=== PATIENT | female | born 1980 | race African-American/Black ===

== ENCOUNTER 2020-05-04 14:49 | Emergency (ER) | payer MEDICAID ==
[~2020-05-04] VITALS: Ht 172.7 cm; Wt 90.0 kg
[~2020-05-04 14:49] MED LIST: CYCL10TA2 PO; HYDR25TA PO; NAPR500T8 PO; ONDA8TAB12 PO
[2020-05-04 15:12] VITALS: BP 125/88
[2020-05-04 15:29] LABS: BILIRUBIN,URINE NEGATIVE (NEG); CLARITY,URINE TURBID; COLOR,URINE YELLOW; NITRITE,URINE NEGATIVE (NEG); PH,URINE 6.5 (<5.0-8.0); PROTEIN,URINE NEGATIVE (NEG-TRACE)
[2020-05-04 15:35] LABS: BACTERIA,URINE MANY /HPF (0-FEW); RBC,URINE 0 /HPF (0-2); SQUAMOUS EPITHELIAL CELL,UR MOD /LPF
[2020-05-04] MEDS ORDERED: cefTRIAXone IM 250 MG VIAL IM ONE (16:15)
[2020-05-04] MEDS ORDERED: AZITHROMYCIN 250 MG TABLET. PO ONE (16:15)
--- NOTE | 2020-05-04 16:28 | PHYS DOC ---
Past Medical History Past Medical History: Anxiety, Bipolar Additional Past Medical Histor: SEASONAL ALLERGIES Past Surgical History: Tubal ligation Smoking Status: Current Every Day Smoker Alcohol Use: Occasionally Drug Use: None General Adult EDM: Chief Complaint: PELVIC PAIN HPI: HPI: Patient is a 39 year old AA female who presents to the emergency department with complaints of excessive vaginal wetness for the last 3 days. She states the symptoms started after she had oral intercourse with a new partner 4 days ago. She reports that the man penetrated her vagina and anus with his tongue, she also reports vaginal intercourse. Patient states that the new partner was wearing a condom during intercourse. She denies any vaginal itching, odor, or abnormal discharge. She denies any fever, cough, abdominal pain, nausea, vomiting, diarrhea, or pelvic pain. She reports concerns of a possible sexually transmitted infection and requests to be treated for a possible STI. She currently denies any pain. Review of Systems: Review of Systems: Constitutional: Denies fever or chills. [] HENT: Denies nasal congestion or sore throat. [] Respiratory: Denies cough or shortness of breath. [] GI: Denies abdominal pain, nausea, vomiting, or diarrhea. [] : Denies dysuria; see HPI. [] Musculoskeletal: Denies back pain or joint pain. [] Integument: Denies rash. [] Neurologic: Denies headache Lymphatic: Denies swollen glands. [] Psychiatric: Denies depression or anxiety. [] Heart Score: Risk Factors: Risk Factors: DM, Current or recent (<one month) smoker, HTN, HLP, family history of CAD, obesity. Risk Scores: Score 0 - 3: 2.5% MACE over next 6 weeks - Discharge Home Score 4 - 6: 20.3% MACE over next 6 weeks - Admit for Clinical Observation Score 7 - 10: 72.7% MACE over next 6 weeks - Early Invasive Strategies Allergies: Allergies: Allergies Coded Allergies Type Severity Reaction Last Updated Verified iodine Allergy Intermediate 02/19/14 Yes Physical Exam: PE: Constitutional: Well developed, well nourished, no acute distress, non-toxic appearance. HENT: Normocephalic, atraumatic, bilateral external ears normal, nose normal. Eyes: PERRLA, EOMI, conjunctiva normal, no discharge. Neck: Normal range of motion, no stridor. Cardiovascular: Heart rate regular rhythm Lungs & Thorax: Respirations even and unlabored, no retractions, no respiratory distress Pelvic Exam: Apron Worker present Eufemia KENNEDY Abdomen: Nontender, soft External Genitalia: Normal Skin Speculum: Normal vaginal mucosa, normal cervical discharge, cervix is f riable, Bimanual: No adnexal masses or tenderness, No CMT Skin: Warm, dry, no erythema, no rash. Extremities: No cyanosis, ROM intact, no edema. Neurologic: Alert and oriented X 3, no focal deficits noted. Psychologic: Affect normal, judgement normal, mood normal. Current Patient Data: Labs: Laboratory Tests Test 05/04/20 14:55 05/04/20 15:00 Urine Collection Type Unknown Urine Color Yellow Urine Clarity Turbid Urine pH 6.5 (<5.0-8.0) Urine Specific [place] 1.025 (1.000-1.030) Urine Protein Negative mg/dL (NEG-TRACE) Urine Glucose (UA) Negative mg/dL (NEG) Urine Ketones (Stick) Negative mg/dL (NEG) Urine Blood Negative (NEG) Urine Nitrite Negative (NEG) Urine Bilirubin Negative (NEG) Urine Urobilinogen Dipstick 1.0 mg/dL (0.2 mg/dL) Urine Leukocyte Esterase Negative (NEG) Urine RBC 0 /HPF (0-2) Urine WBC 1-4 /HPF (0-4) Urine Squamous Epithelial Cells Mod /LPF Urine Bacteria Many /HPF (0-FEW) Urine Mucus Mod /LPF POC Urine HCG, Qualitative Hcg negative (Negative) Microbiology 05/04/20 Wet Prep - Final, Complete Vital Signs: Vital Signs Date Time Temp Pulse Resp B/P (MAP) Pulse Ox O2 Delivery O2 Flow Rate FiO2 05/04/20 15:12 98.3 93 16 125/88 (100) 100 Room Air 98.3 EKG: EKG: [] Radiology/Procedures: Radiology/Procedures: [] Course & Med Decision Making: Course & Med Decision Making Pertinent Labs and Imaging studies reviewed. (See chart for details) 39-year-old female presents to the emergency department with concerns of a sexually transmitted infection and excessive vaginal wetness. Pelvic exam revealed no abnormalities of the external or internal genitalia. However the patient required requested to be treated for suspected gonorrhea or chlamydia. Patient was treated prophylactically with 250 mg of IM Rocephin, and 1 g of PO Zithromax. Patient was instructed to avoid having intercourse until the results of gonorrhea and chlamydia testing are available, patient was notified that these results would not be available for 48 hours. If one or both of these tests is positive, patient needs to refrain from intercourse for approximately 1 week following the treatment of any current partners. Patient verbalized an understanding of home care, medications, follow-up, and return to ED instructions and was in agreement with the plan of care. [] Dragon Disclaimer: Dragon Disclaimer: This electronic medical record was generated, in whole or in part, using a voice recognition dictation system. Departure Departure Impression: Primary Impression: Contact with and (suspected) exposure to infections with a predominantly sexual mode of transmission Disposition: HOME, SELF-CARE Condition: STABLE Referrals: JEN ADDISON (PCP) Patient Instructions: Sexually Transmitted Disease, [id number] Additional Instructions: Recommend that you go to your local health department for comprehensive sexually transmitted disease testing. You have been treated for a suspected gonorrhea and chlamydia. Avoid having intercourse until the results of gonorrhea and chlamydia testing are available, these results will not be available for 48 hours. If one or both of these tests is positive, you need to refrain from intercourse for approximately 1 week following the treatment of any current partners. Follow-up with your primary care doctor if symptoms persist, return to ER symptoms worsen. Justicifation of Admission Dx: Justifications for Admission: Justification of Admission Dx: N/A JERAD RAMON APRN May 04, 2020 16:28
[2020-05-06 19:10] LABS: GC PROBE Negative (Negative)
== END 2020-05-04 16:49 | disposition home or self-care (01) ==
LOC: ER 14:49
DX: N89.8 Other specified noninflammatory disorders of vagina (principal); F41.9 Anxiety disorder, unspecified; F31.9 Bipolar disorder, unspecified; F17.200 Nicotine dependence, unspecified, uncomplicated; Z98.51 Tubal ligation status; Z20.2 Contact with and (suspected) exposure to infections with a predominantly sexual mode of transmission; Z91.040 Latex allergy status
CPT/HCPCS: 81001; 81025; 87086; 87491; 87591; 96372; 99284; J0696; Q0111

== ENCOUNTER 2020-07-08 18:37 | Emergency (ER) | payer MEDICAID ==
[~2020-07-08] VITALS: Ht 170.2 cm; Wt 85.9 kg
[2020-07-08 19:21] LABS: BILIRUBIN,URINE NEGATIVE (NEG); CLARITY,URINE CLEAR; COLOR,URINE YELLOW; NITRITE,URINE NEGATIVE (NEG); PH,URINE 6.5 (<5.0-8.0); PROTEIN,URINE NEGATIVE (NEG-TRACE); UROBILINOGEN,URINE 0.2 mg/dL (0.2 mg/dL)
--- NOTE | 2020-07-08 19:23 | PHYS DOC ---
Past Medical History Past Medical History: Anxiety, Bipolar Additional Past Medical Histor: SEASONAL ALLERGIES (DUSTIN LINCOLN APRN) Past Surgical History: Tubal ligation (DUSTIN LINCOLN APRN) Smoking Status: Current Every Day Smoker Alcohol Use: Occasionally Drug Use: None (DUSTIN LINCOLN APRN) General Adult EDM: Chief Complaint: VAGINAL BLEEDING HPI: HPI: Patient is a 39 year old Female who presents with 2 weeks of urinary frequency and irritation at her urethral area. She states that she also started her period 2 weeks early. She states that she is a lesbian and they only use Dildos. She states that she is not sure if they are cleaned regularly. She states that she does not think that she has any sexually transmitted diseases but would be checked for them today. Patient denies abdominal pain, nausea, vomiting, diarrhea, burning with urination, back pain, fever, headache, dizziness, vaginal discharge, chest pain, shortness of breath. She has a history of smoking, bipolar, allergies, anxiety. (DUSTIN LINCOLN APRN) Review of Systems: Review of Systems: Constitutional: Denies fever or chills. [] Eyes: Denies change in visual acuity. [] HENT: Denies nasal congestion or sore throat. [] Respiratory: Denies cough or shortness of breath. [] Cardiovascular: Denies chest pain or edema. [] GI: Denies abdominal pain, nausea, vomiting, bloody stools or diarrhea. [] : Denies dysuria. Vaginal irritation and urinary frequency. [] Musculoskeletal: Denies back pain or joint pain. [] Integument: Denies rash. [] Neurologic: Denies headache, focal weakness or sensory changes. [] Endocrine: Denies polyuria or polydipsia. [] Lymphatic: Denies swollen glands. [] Psychiatric: Denies depression or anxiety. [] (DUSTIN LINCOLN APRN) Heart Score: Risk Factors: Risk Factors: DM, Current or recent (<one month) smoker, HTN, HLP, family history of CAD, obesity. Risk Scores: Score 0 - 3: 2.5% MACE over next 6 weeks - Discharge Home Score 4 - 6: 20.3% MACE over next 6 weeks - Admit for Clinical Observation Score 7 - 10: 72.7% MACE over next 6 weeks - Early Invasive Strategies (DUSTIN LINCOLN APRN) Allergies: Allergies: Allergies Coded Allergies Type Severity Reaction Last Updated Verified iodine Allergy Intermediate 02/19/14 Yes (DUSTIN LINCOLN APRN) Physical Exam: PE: Constitutional: Well developed, well nourished, no acute distress, non-toxic appearance. [] HENT: Normocephalic, atraumatic, bilateral external ears normal, oropharynx moist, no oral exudates, nose normal. [] Eyes: PERRLA, EOMI, conjunctiva normal, no discharge. [] Neck: Normal range of motion, no tenderness, supple, no stridor. [] Cardiovascular:Heart rate regular rhythm, no murmur [] Lungs & Thorax: Bilateral breath sounds clear to auscultation [] Abdomen: Bowel sounds normal, soft, no tenderness, no masses, no pulsatile masses. [] Skin: Warm, dry, no erythema, no rash. [] Back: No tenderness, no CVA tenderness. [] Extremities: No tenderness, no cyanosis, no clubbing, ROM intact, no edema. [] Neurologic: Alert and oriented X 3, normal motor function, normal sensory function, no focal deficits noted. [] Psychologic: Affect normal, judgement normal, mood normal. Normal physical exam [] (DUSTIN LINCOLN APRN) Current Patient Data: Labs: Laboratory Tests Test 07/08/20 19:02 POC Urine HCG, Qualitative Hcg negative (Negative) (DUSTIN LINCOLN APRN) EKG: EKG: [] (DUSTIN LINCOLN APRN) Radiology/Procedures: Radiology/Procedures: [] (DUSTIN LINCOLN APRN) Course & Med Decision Making: Course & Med Decision Making Pertinent Labs and Imaging studies reviewed. (See chart for details) See HPI. Alert and oriented x4. Speaks in full complete sentences. Ambulatory to steady gait. Abdomen is soft and nontender. No CVA tenderness. Pelvic Exam: Speech Language Therapist present Abdomen: Nontender External Genitalia: Normal Skin Speculum: Normal vaginal mucosa, bloody cervical discharge Bimanual: No adnexal masses or tenderness, No CMT Patient is educated that the chlamydia and gonorrhea will not come back for 48 hours and then call her only if she is positive. Wet prep shows no acute findings. Due to the amount of blood in the urinalysis is hard to tell if there is infection but there was no leukocytes. I can however treat her symptoms with antibiotic. Because of the sex toy use and she is unaware if it is clean regularly I will go ahead and treat her with miconazole vaginally. [] (DUSTIN LINCOLN APRN) Dragon Disclaimer: Dragon Disclaimer: This electronic medical record was generated, in whole or in part, using a voice recognition dictation system. (DUSTIN LINCOLN APRN) Departure Departure Impression: Primary Impression: Urinary symptom or sign Additional Impression: Vaginal irritation Disposition: 01 DC HOME SELF CARE/HOMELESS Condition: STABLE Referrals: SARI GARCIA MSN, RN, AUTOMATIC ENGRAVER (PCP) Patient Instructions: Urinary Tract Infection, Vaginitis, [id number] Additional Instructions: Follow-up with a clinic office coordinator if needed. Remember that the test will come back in 48 hours and they will call you only if the chlamydia or gonorrhea come back positive. Use medications as prescribed. Scripts Cephalexin (KEFLEX) 500 Mg Capsule 1 CAP PO BID for 7 Days, #14 CAP 0 Refills Prov: DUSTIN LINCOLN APRN 07/08/20 Miconazole Nitrate (MONISTAT 3) 24 Gm Cmb.pf.crm 1 APPFUL VG QHS for 3 Days, #24 GM 0 Refills Prov: DUSTIN LINCOLN APRN 07/08/20 Attending Signature Attending Signature I have reviewed the PA/RN OBGYN's note and plan of care. I was available for consultation as needed during the patient's visit in the emergency department. I agree with the clinical impression, plan, and disposition. (DAVID ALVRAEZ DO) DUSTIN LINCOLN APRN Jul 08, 2020 19:23 DAVID ALVAREZ DO Jul 09, 2020 00:45
[2020-07-08 19:26] LABS: BACTERIA,URINE 0 /HPF (0-FEW); RBC,URINE >40 /HPF (0-2); WBC,URINE OCC /HPF (0-4)
[2020-07-08 19:46] LABS: BASO # 0.1 x10^3/uL (0.0-0.2); BASO % 1 % (0-3); EOS # 0.2 x10^3/uL (0.0-0.7); EOS % 2 % (0-3); HEMATOCRIT 40.5 % (36.0-47.0); LYMPH % 33 % (24-48); MEAN CORPUSCULAR HEMOGLOBIN 35 pg (25-35); MEAN CORPUSCULAR HGB CONC 35 g/dL (31-37); MEAN CORPUSCULAR VOLUME 100 fL (79-100); MONO # 0.8 x10^3/uL (0.0-1.1); MONO % 9 % (0-9); NEUT # 5.1 x10^3/uL (1.8-7.7); NEUT % 56 % (31-73); PLATELET COUNT 176 x10^3/uL (140-400); RED BLOOD COUNT 4.05 x10^6/uL (3.50-5.40); RED CELL DISTRIBUTION WIDTH 13.1 % (11.5-14.5); WHITE BLOOD COUNT 9.2 x10^3/uL (4.0-11.0)
[2020-07-08] MEDS ORDERED: CEPH-264 PO (19:53)
[2020-07-08] MEDS ORDERED: MICO24CM5 VG (19:53)
[2020-07-08 20:15] LABS: CALCIUM 9.1 mg/dL (8.5-10.1); GFR 75.1; POTASSIUM 3.8 mmol/L (3.5-5.1)
[2020-07-08 20:29] LABS: ALBUMIN 3.7 g/dL (3.4-5.0); ALBUMIN/GLOBULIN RATIO 1.1 (1.0-1.7); TOTAL BILIRUBIN 0.3 mg/dL (0.2-1.0)
[2020-07-08 20:55] VITALS: BP 116/66
[2020-07-10 19:24] LABS: GC PROBE Negative (Negative)
== END 2020-07-08 21:00 | disposition home or self-care (01) ==
LOC: ER 18:37
DX: R35.0 Frequency of micturition (principal); N89.8 Other specified noninflammatory disorders of vagina; F31.9 Bipolar disorder, unspecified; F41.9 Anxiety disorder, unspecified; F17.200 Nicotine dependence, unspecified, uncomplicated; Z98.51 Tubal ligation status; Z88.8 Allergy status to other drugs, medicaments and biological substances
CPT/HCPCS: 36415; 80053; 81001; 81025; 85025; 87491; 87591; 99284; Q0111

== ENCOUNTER 2020-10-27 03:40 | Emergency (ER) | payer MEDICAID ==
[~2020-10-27] VITALS: Ht 170.2 cm; Wt 84.1 kg
[~2020-10-27 03:40] MED LIST changes: +CEPH-264 PO; +MICO24CM5 VG
[2020-10-27 03:50] VITALS: BP 131/87
--- NOTE | 2020-10-27 04:15 | PHYS DOC ---
Past Medical History Past Medical History: Anxiety, Bipolar Additional Past Medical Histor: SEASONAL ALLERGIES (KIKA SCHROEDER DO) Past Surgical History: Tubal ligation (KIKA SCHROEDER DO) Smoking Status: Current Every Day Smoker Alcohol Use: Occasionally Drug Use: None (KIKA SCHROEDER DO) General Adult EDM: Chief Complaint: BREAST PAIN/INJURY HPI: HPI: 39-year-old female past medical history significant for bipolar disorder anxiety, presents to the ED with complaints of " felt like gas," with associated loud flatus, describes a sharp intermittent episodes of nonradiating pain underneath the left breast, brief intervals that are relieved with gas. Patient states " I can hear my stomach fluttering." States last night while watching the Meta game she had 2 shots and drink a 3 pack of cigarette coolers. States she ate chili, red ~, pulled pork, chicken and ribs. States her last bowel movement was this morning, normal brown color. No history of melena or hematochezia. LMP was last week of September with past surgical history of tubal ligation. Denies any cocaine, methamphetamine abuse or tobacco use. Patient asymptomatic on arrival. Charge nurse received a different history patient denied to myself-patient reported to her pain underneath her left breast that was tender to the ribs, worsened with respirations. Patient formation is a family history of breast cancer but no ACS, arrhythmias, sudden under the age of 50, aortic aneurysms or dissections, DVT or PEs. Patient with no prior history of cardiac disease. Takes no routine medications for her bipolar disorder anxiety. Pt reports " last time I had this pain no doctor took it seriously and I had pneumonia." (KIKA SCHROEDER DO) Review of Systems: Review of Systems: Constitutional: Denies fever or chills. [] Eyes: Denies change in visual acuity. [] HENT: Denies nasal congestion or sore throat. [] Respiratory: Denies cough or shortness of breath. [] Cardiovascular: Denies chest pressure/tightness/heaviness or edema. [] GI: Denies nausea, vomiting, melena, hematochezia, hematemesis or diarrhea : Denies dysuria, hematuria or vaginal bleeding Musculoskeletal: Denies back pain or joint pain. [] Integument: Denies rash or diaphoresis Neurologic: Denies headache, neck stiffness, focal weakness or sensory changes. [] Endocrine: Denies polyuria or polydipsia. [] Lymphatic: Denies swollen glands. [] Psychiatric: Denies depression or anxiety. [] ([facility]) Heart Score: HEART Score for Chest Pain: HEART Score for Chest Pain Response (Comments) Value History Slighlty/Non-Suspicious 0 ECG Normal 0 Age < 45 0 Risk Factors No Risk Factors 0 Total 0 Risk Factors: Risk Factors: DM, Current or recent (<one month) smoker, HTN, HLP, family history of CAD, obesity. Risk Scores: Score 0 - 3: 2.5% MACE over next 6 weeks - Discharge Home Score 4 - 6: 20.3% MACE over next 6 weeks - Admit for Clinical Observation Score 7 - 10: 72.7% MACE over next 6 weeks - Early Invasive Strategies ([facility] DO) Allergies: Allergies: Allergies Coded Allergies Type Severity Reaction Last Updated Verified iodine Allergy Intermediate 02/19/14 Yes ([facility] DO) Physical Exam: PE: Constitutional: Well developed, well nourished, no acute distress, non-toxic appearance. HENT: Normocephalic, atraumatic, Eyes: EOMI, conjunctiva normal, no discharge. Neck: Normal range of motion, supple, Cardiovascular: S1/2 present, regular rhythm Lungs & Thorax: Speaking in full sentences, bilateral equal chest rise, no tachypnea or increased work of breathing, pain is localized over left anterior ribs 4-7 but is not reproducible, no rash Abdomen: soft, no localized tenderness, no epigastric tenderness, no rigidity or guarding, no Xavier sign, no Rovsing sign, Skin: Warm, dry, no erythema, no rash. [] Back: No midline tenderness, no CVA tenderness. [] Extremities: No tenderness, no cyanosis, no edema Neurologic: Alert and oriented X 3, normal motor function, normal sensory function, no focal deficits noted. [] Psychologic: Affect normal, judgement normal, mood -fluctuates between anxiety and calm, continues to thank medical staff ([facility] DO) Current Patient Data: Vital Signs: Vital Signs Date Time Temp Pulse Resp B/P (MAP) Pulse Ox O2 Delivery O2 Flow Rate FiO2 10/27/20 03:50 98.1 93 18 131/87 (102) 99 Room Air 98.1 (KIKA SCHROEDER DO) EKG: EKG: Sinus rhythm at 85 bpm, no axis deviation, prolonged QTC 472, no T wave inversions, no ST elevations or ST depressions (KIKA SCHROEDER DO) Radiology/Procedures: Radiology/Procedures: IMAGING REPORT Signed PATIENT: CECY FORTE MACCOUNT: [id number] : 1980 LOCATION: ER AGE: 39 SEX: F EXAM STATUS: PRE ER ORD. PHYSICIAN: KIKA SCHROEDER DO REASON: left breast pain PROCEDURE: CHEST AP ONLY XR CHEST 1V 10/27/2020 4:05 AM INDICATION: Left breast pain COMPARISON: 09/23/2013 TECHNIQUE: Portable frontal view of the chest is provided. FINDINGS: The cardiomediastinal silhouette is within normal limits. Lungs are clear. There are no significant pleural effusions. There is no pulmonary vascular congestion. No pneumothorax. No suspicious osseous abnormality. IMPRESSION: There is no acute cardiopulmonary process. Electronically signed by: Bonnie Lemos MD (10/27/2020 5:00 AM) [facility] DICTATED and SIGNED BY: BONNIE LEMOS MD DATE: 10/27/20 [id number] (KIKA SCHROEDER DO) Course & Med Decision Making: Course & Med Decision Making Pertinent Labs and Imaging studies reviewed. (See chart for details) History initially concerning for flatulence/gas pain. Pt calm and in no visible distress. Pt continues to say "but what about my pain, I need something for my pain." Educated patient on appropriate analgesia and she reported her pain was much more serious. Pt appears very anxious. Given history of recent alcohol abuse, labs including lipase and ct imaging are pending. Plan was to sign out to oncoming physician, Dr. Sanders for further workup and dispo due to shift change. While I was responding to a medical code in the ICU pt requested to leave AMA, refused to wait and speak with myself and would not wait for discharge papers. Patient had medical decision-making capacity and I had previously discussed risks/benefits of leaving AGAINST MEDICAL ADVICE including life limb threatening diseases including . Dr. Sanders was assigned to this note but was not provider involved in this patient's care. The patient has decided to leave our facility against medical advice. I have assessed patient's ability to make informed decision and feel the patient has the capacity to comprehend information regarding the current medical condition and appreciates the impact of the disease or condition and the consequences of various options for treatment, including foregoing treatment. The patient poss esses the ability to evaluate all treatment options, comparing the risks and benefits of each option, communicate his or her choice in a consistent manner over time, and is able to make rational choices. I explained to the patient further testing, treatment, and evaluation I would like to perform in the emergency department visit as well as any possible alternatives that can be ac complished in a timely manner. I have outlined the possible risks of foregoing any or all of these interventions and the patient understands and acknowledges that the decision to leave may result in undesirable consequences such as , permanent disability, and/or loss of current lifestyle. Even though leaving AMA is not ideal, I have instructed the patient to follow any discharge instructions given, take any medications prescribed, and resume care as soon as possible with another provider. This conversation was witnessed by another member of the emergency department staff and we clearly communicated the patient is welcome to return anytime to continue care at our facility. (KIKA SCHROEDER DO) Dragon Disclaimer: Dragon Disclaimer: This electronic medical record was generated, in whole or in part, using a voice recognition dictation system. (KIKA SCHROEDER DO) Departure Departure Impression: Primary Impression: Flatulence, eructation and gas pain Disposition: 07 AMA/ELOPED/LWBS Condition: STABLE Referrals: SARI GARCIA MSN, RN, SENIOR MICROSOFT CONSULTANT (PCP) in 1-2 weeks Patient Instructions: Flatulence, [id number] Additional Instructions: FOLLOW UP WITH GASTROENTEROLOGY: Gastroenterology [facility] Address: [address] [place] [address] EMERGENCY DEPARTMENT GENERAL DISCHARGE INSTRUCTIONS Thank you for coming to [facility] Emergency Department (ED) today and trusting us with you care. We trust that you had a positive experience in our Emergency Department. If you wish to speak to the department management, you may call the Director at [phone]. YOUR FOLLOW UP INSTRUCTIONS ARE FOLLOWS: 1. Do you have a private Doctor? If you do not have a private doctor, please ask for a resource list of physicians or clinics that may be able to assist you with follow up care. 2. The Emergency Physicain has interpreted your x-rays. The X-Ray specialist will also review them. If there is a change in the findings, you will be notified in 48 hours when at all possible. 3. A lab test or culture has been done, your results will be reviewed and you will be notified if you need a change in treatment. ADDITIONAL INSTRUCTIONS AND INFORMATION: 1. Your care today has been supervised by a physician who is specially trained in emergency care. Many problems require more than one evaluation for a complete diagnosis and treatment. We recommend that you schedule your follow up appointment as recommended to ensure complete treatment of you illness or injury. If you are unable to obtain follow up care and continue to have a problem, or if your condition worsens, we recommend that you return to the ED. 2. We are not able to safely determine your condition over the phone nor are we able to give sound medical advice over the phone. For these safety reasons, if you call for medical advice we will ask you to come to the ED for further evaluation. 3. If you have any questions regarding these discharge instructions please call the ED at [phone]. SAFETY INFORMATION: In the interest of safety, wellness, and injury prevention; we encourage you to wear your sealbelt, if you smoke; quite smoking, and we encourage family to use a protective helmet for bicycling and other sporting events that present an increased risk for head injury. IF YOUR SYMPTOMS WORSEN OR NEW SYMPTOMS DEVELOP, OR YOU HAVE CONCERNS ABOUT YOUR CONDITION; OR IF YOUR CONDITION WORSENS WHILE YOU ARE WAITING FOR YOUR FOLLOW UP APPOINTMENT; EITHER CONTACT YOUR PRIMARY CARE DOCTOR, THE PHYSICIAN WHOSE NAME AND NUMBER YOU WERE GIVEN, OR RETURN TO THE ED IMMEDIATELY. Scripts Simethicone (SIMETHICONE) 80 Mg Tab.chew 2 TAB PO UD for gas for 3 Days, #6 TAB 0 Refills Prov: KIKA SCHROEDER DO 10/27/20 KIKA SCHROEDER DO Oct 27, 2020 04:15 GLORIA SANDERS DO Oct 27, 2020 07:12
[2020-10-27] MEDS ORDERED: SIMETHICONE 80 MG TAB.CHEW PO ONE (05:00)
[2020-10-27] MEDS ORDERED: LIDO:MAALOX 1:1 20 ML SINGLE DOSE. SWSW ONE (05:00)
[2020-10-27] MEDS ORDERED: LIDOCAINE 2% TOPICAL JELLY 5GM TUBE. TP ONE (05:00)
--- NOTE | 2020-10-27 05:02 | RAD ---
XR CHEST 1V 10/27/2020 4:05 AM INDICATION: Left breast pain COMPARISON: 09/23/2013 TECHNIQUE: Portable frontal view of the chest is provided. FINDINGS: The cardiomediastinal silhouette is within normal limits. Lungs are clear. There are no significant pleural effusions. There is no pulmonary vascular congestion. No pneumothora x. No suspicious osseous abnormality. IMPRESSION: There is no acute cardiopulmonary process. Electronically signed by: Anila Neal MD (10/27/2020 5:00 AM) [facility]
[2020-10-27] MEDS ORDERED: SIME80TA14 PO (05:42)
[2020-10-27] MEDS ORDERED: KETOROLAC 15 MG/ML VIAL. IVP ONE (06:00)
[2020-10-27] MEDS ORDERED: FAMOTIDINE 20 MG/2 ML VIAL IVP ONE (06:00)
[2020-10-27] MEDS ORDERED: IV NORMAL SALINE 1000ML BAG 1,000 ML IV SCH (06:00)
[2020-10-27 06:13] LABS: AMPHETAMINE/METHAMPHETAMINE NEG (NEG); BARBITURATES NEG (NEG); BENZODIAZEPINES NEG (NEG); CANNABINOIDS NEG (NEG); COCAINE NEG (NEG); METHADONE NEG (NEG); OPIATES NEG (NEG); PHENCYCLIDINE NEG (NEG)
--- NOTE | 2020-10-27 12:07 | EKG ---
[facility] [address] [place] [address] Test Date: 2020-10-27 Test Time: 04:11:45 Pat Name: CECY FORTE Department: Room: Gender: F Armature Tester: : 1980 Requested By: KIKA SCHROEDER Order Number: [id number] Reading MD: Aldair Smith Measurements Intervals [place] Rate: 85 P: 58 NC: 134 QRS: 8 QRSD: 82 T: 42 QT: 392 QTc: 472 Interpretive Statements SINUS RHYTHM Electronically Signed On 10-28-2020 9:03:07 BUILDING MAINTENANCE WORKER by Aldair Smith
[2020-10-27] MEDS ORDERED: DICY20TA3 PO (16:38)
== END 2020-10-27 07:00 | disposition home or self-care (01) ==
LOC: ER 03:40
DX: R14.1 Gas pain (principal); R14.3 Flatulence; R14.2 Eructation; N64.4 Mastodynia; F41.9 Anxiety disorder, unspecified; F31.9 Bipolar disorder, unspecified; F17.210 Nicotine dependence, cigarettes, uncomplicated; Z98.51 Tubal ligation status
CPT/HCPCS: 71045; 80307; 81025; 93005; 99285

== ENCOUNTER 2020-10-27 12:18 | Emergency (ER) | payer MEDICAID ==
[~2020-10-27] VITALS: Ht 170.2 cm; Wt 84.1 kg
[~2020-10-27 12:18] MED LIST changes: +SIME80TA14 PO
[2020-10-27] MEDS ORDERED: ACETAMINOPHEN 500 MG TABLET PO ONE (13:30)
[2020-10-27] MEDS ORDERED: PROCHLORPERAZINE 10 MG/2 ML VIAL. IV ONE (13:30)
[2020-10-27] MEDS ORDERED: FAMOTIDINE 20 MG/2 ML VIAL IVP ONE (13:30)
--- NOTE | 2020-10-27 14:05 | RAD ---
EXAM: CT Abdomen and Pelvis without IV contrast INDICATION: Reason: abd pain / Spl. Instructions: / History: TECHNIQUE: Multi-detector row CT images were acquired from the lung bases through the abdomen and pel vis without the use of IV contrast. Sagittal and coronal images were acquired from the transaxial shorty a. All CT scans performed at this facility utilize dose optimization techniques as appropriate to the exam, including the following: Automated exposure control and adjustment of the mA and/or KV accordi ng to patient size (this includes techniques or standardized protocols for targeted exams where dose is indication/reason for exam). ORAL CONTRAST: None COMPARISON: None FINDINGS: The absence of IV contrast limits evaluation of soft tissue pathology. LOWER CHEST: Unremarkable LIVER: Unremarkable BILIARY SYSTEM: Gallbladder is unremarkable. Bile ducts are not dilated. PANCREAS: Unremarkable SPLEEN: Unremarkable ADRENALS: Unremarkable KIDNEYS & URETERS: Unremarkable BLADDER: Unremarkable REPRODUCTIVE ORGANS: Fat-containing left adnexal mass measuring 3.2 cm is compatible with a mature c ystic teratoma. GASTROINTESTINAL: The stomach, small bowel, and colon are unremarkable. The appendix is normal. MESENTERY/PERITONEUM/RETROPERITONEUM: Unremarkable VASCULAR: Unremarkable LYMPH NODES: No adenopathy OSSEOUS & SOFT TISSUES: Unremarkable IMPRESSION: Unremarkable CT of the abdomen and pelvis without contrast. No specific cause for abdominal pain iden tified. Likely incidental mature cystic teratoma the left adnexa measuring 3.2 cm. Electronically signed by: Kaylee Alas MD (10/27/2020 2:03 PM) [id number]
--- NOTE | 2020-10-27 14:13 | PHYS DOC ---
Past Medical History Past Medical History: Anxiety, Bipolar Additional Past Medical Histor: SEASONAL ALLERGIES Past Surgical History: Tubal ligation Smoking Status: Current Every Day Smoker Alcohol Use: Occasionally Drug Use: None General Adult EDM: Chief Complaint: ABDOMINAL PAIN HPI: HPI: Patient is a 39 year old female with a history of anxiety, bipolar, who presents to the ED today stating she needs a CAT scan of the abdomen done. Patient states it was supposed to be done at 6 AM but she had to leave the ED because she was very nervous after the doctor told her she could have cancer from the CAT scan. Patient states she has had mild intermittent left upper q uadrant abdominal pain specifically beneath her left breast. She states the pain is sharp and is relieved when she passes gas. She describes the pain as "fluttering" in her stomach. Patient reports having alcohol yesterday while watching football. She states she had 3 pack of cigarette coolers and 2 shots. She states she did not eat anything significant during the game but reports some pulled pork chicken and ribs with chili. Denies any use of drugs. Denies any urinary symptoms. Denies any chance she is , she states her tubes are tied. She states she feels anxious right now due to the thought of cancer with CT Review of Systems: Review of Systems: Constitutional: Denies fever or chills. [] Eyes: Denies change in visual acuity. [] HENT: Denies nasal congestion or sore throat. [] Respiratory: Denies cough or shortness of breath. [] Cardiovascular: Denies chest pain or edema. [] GI: Reports left upper quadrant abdominal pain. Nausea, vomiting, bloody stools or diarrhea. [] : Denies dysuria. [] Musculoskeletal: Denies back pain or joint pain. [] Integument: Denies rash. [] Neurologic: Denies headache, focal weakness or sensory changes. [] Psychiatric: Reports anxiety Heart Score: Risk Factors: Risk Factors: DM, Current or recent (<one month) smoker, HTN, HLP, family history of CAD, obesity. Risk Scores: Score 0 - 3: 2.5% MACE over next 6 weeks - Discharge Home Score 4 - 6: 20.3% MACE over next 6 weeks - Admit for Clinical Observation Score 7 - 10: 72.7% MACE over next 6 weeks - Early Invasive Strategies Current Medications: Current Medications Medications (Trade) Dose Ordered Sig/Parul Start Time Stop Time Status Last Admin Dose Admin Acetaminophen (Tylenol) 1,000 mg 1X ONCE 10/27/20 13:30 10/27/20 13:31 DC Famotidine (Pepcid Vial) 20 mg 1X ONCE 10/27/20 13:30 10/27/20 13:31 DC Fentanyl Citrate (Fentanyl 2ml Vial) 50 mcg PRN Q15MIN PRN 10/27/20 13:30 10/28/20 13:29 Prochlorperazine Edisylate (Compazine) 10 mg 1X ONCE 10/27/20 13:30 10/27/20 13:31 DC Sodium Chloride 1,000 ml @ 1,860 mls/hr Q33M 10/27/20 13:30 10/27/20 14:30 Allergies: Allergies: Allergies Coded Allergies Type Severity Reaction Last Updated Verified iodine Allergy Intermediate 02/19/14 Yes Physical Exam: PE: Constitutional: Well developed, well nourished, no acute distress, non-toxic appearance. [] HENT: Normocephalic, atraumatic, bilateral external ears normal, oropharynx moist, no oral exudates, nose normal. [] Eyes: PERRLA, EOMI, conjunctiva normal, no discharge. [] Neck: Normal range of motion, no tenderness, supple, no stridor. [] Cardiovascular:Heart rate regular rhythm, no murmur [] Lungs & Thorax: Bilateral breath sounds clear to auscultation [] Abdomen: Bowel sounds normal, soft, no tenderness, no masses, no pulsatile masses. [] Skin: Warm, dry, no erythema, no rash. [] Back: No tenderness, no CVA tenderness. [] Extremities: No tenderness, no cyanosis, no clubbing, ROM intact, no edema. [] Neurologic: Alert and oriented X 3, normal motor function, normal sensory function, no focal deficits noted. [] Psychologic: Anxious appearing, tearful Current Patient Data: Vital Signs: Vital Signs Date Time Temp Pulse Resp B/P (MAP) Pulse Ox O2 Delivery O2 Flow Rate FiO2 10/27/20 12:53 100.4 16 116/71 (86) 100 100.4 EKG: EKG: [] Radiology/Procedures: Radiology/Procedures: [] Course & Med Decision Making: Course & Med Decision Making Pertinent Labs and Imaging studies reviewed. (See chart for details) This is a 39-year-old female patient presenting to the ED today requesting a CAT scan of the abdomen. She states this was supposed to be done this morning when she is in the ED but she left because she was afraid she could get cancer from it because the morning doctor told her that is the side effect. Patient arrives in the ED very anxious, tearful. Alison from the [facility] team came and talked to her. She is running an incidental fever of 100.4, recommended Covid swab, she refused. Labs are negative, CT of the abdomen and pelvic is negative for any acute findings. Discharge to home. Dragon Disclaimer: [employer] Disclaimer: This electronic medical record was generated, in whole or in part, using a voice recognition dictation system. Departure Departure Impression: Primary Impression: LUQ pain Additional Impressions: Fever Qualified Codes: R50.9 - Fever, unspecified Anxiety Disposition: 01 DC HOME SELF CARE/HOMELESS Condition: STABLE Referrals: SARI GARCIA MSN, RN, [employer]ATOR (PCP) follow up next week Patient Instructions: Abdominal Pain Additional Instructions: He was seen for abdominal pain. He also running a fever. You abdominal work-up is negative. With encourage you to push fluids, take Tylenol Motrin for pain or fever. Please follow-up with your doctor in 1 week. Scripts Dicyclomine Hcl (DICYCLOMINE HCL) 20 Mg Tablet 1 TAB PO TID, #20 TAB 1 Refill Prov: SCOT GEORGES APRN 10/27/20 SCOT GEORGES APRN Oct 27, 2020 14:13
[2020-10-27 14:24] LABS: BASO # 0.1 x10^3/uL (0.0-0.2); BASO % 1 % (0-3); EOS # 0.1 x10^3/uL (0.0-0.7); EOS % 1 % (0-3); HEMATOCRIT 42.9 % (36.0-47.0); HEMOGLOBIN 14.6 g/dL (12.0-15.5); LYMPH # 1.7 x10^3/uL (1.0-4.8); LYMPH % 19 % (24-48); MEAN CORPUSCULAR HEMOGLOBIN 34 pg (25-35); MEAN CORPUSCULAR HGB CONC 34 g/dL (31-37); MEAN CORPUSCULAR VOLUME 101 fL (79-100); MONO # 0.7 x10^3/uL (0.0-1.1); MONO % 8 % (0-9); NEUT # 6.5 x10^3/uL (1.8-7.7); NEUT % 72 % (31-73); PLATELET COUNT 162 x10^3/uL (140-400); RED BLOOD COUNT 4.26 x10^6/uL (3.50-5.40); RED CELL DISTRIBUTION WIDTH 13.2 % (11.5-14.5)
[2020-10-27 14:38] LABS: CREATININE 0.9 mg/dL (0.6-1.0); GFR 84.8; POTASSIUM 3.9 mmol/L (3.5-5.1)
[2020-10-27] MEDS: fentaNYL PF VIAL 100 MCG/2 ML VIAL IV PRN ×2 (14:46→16:11)
[2020-10-27] MEDS: IV NORMAL SALINE 1000ML BAG 1,000 ML IV SCH ×2 (14:47→16:00)
[2020-10-27 14:51] LABS: ALBUMIN 4.4 g/dL (3.4-5.0); ALBUMIN/GLOBULIN RATIO 1.2 (1.0-1.7); MAGNESIUM 2.2 mg/dL (1.8-2.4); TOTAL BILIRUBIN 0.5 mg/dL (0.2-1.0)
[2020-10-27 15:49] LABS: BILIRUBIN,URINE NEGATIVE (NEG); CLARITY,URINE CLEAR; COLOR,URINE YELLOW; NITRITE,URINE NEGATIVE (NEG); PROTEIN,URINE NEGATIVE (NEG-TRACE); UROBILINOGEN,URINE 0.2 mg/dL (0.2 mg/dL)
[2020-10-27 15:55] LABS: BARBITURATES NEG (NEG); BENZODIAZEPINES NEG (NEG); CANNABINOIDS NEG (NEG); COCAINE NEG (NEG); METHADONE NEG (NEG); OPIATES NEG (NEG); PHENCYCLIDINE NEG (NEG)
[2020-10-27 16:03] LABS: BACTERIA,URINE FEW /HPF (0-FEW)
[2020-10-27 16:06] LABS: AMPHETAMINE/METHAMPHETAMINE NEG (NEG)
[2020-10-27] MEDS ORDERED: DICY20TA3 PO (16:38)
[2020-10-27 17:00] VITALS: BP 114/69
== END 2020-10-27 17:29 | disposition home or self-care (01) ==
LOC: ER 12:18
DX: R10.12 Left upper quadrant pain (principal); R50.9 Fever, unspecified; F41.9 Anxiety disorder, unspecified; F31.9 Bipolar disorder, unspecified; F17.210 Nicotine dependence, cigarettes, uncomplicated; Z98.51 Tubal ligation status; Z91.040 Latex allergy status
CPT/HCPCS: 36415; 74176; 80053; 80307; 81001; 83605; 83690; 83735; 84145; 85025; 87040; 96361; 96374; 96375; 96376; 99285; G0480; J0780; J3010; J3490; J7030